=== PATIENT | male | born 1965 | race Caucasian/White ===

== ENCOUNTER 2017-09-17 07:28 | Emergency (ER) | payer OTHER, MEDICAID ==
[~2017-09-17] VITALS: Ht 132.1 cm; Wt 61.2 kg
[2017-09-17 07:46] VITALS: BP 193/140
[2017-09-17] MEDS ORDERED: KETOROLAC TROMETH 60MG/2ML VIAL IM ONE (09:30)
[2017-09-17] MEDS ORDERED: cloNIDine HCL 0.1 MG TAB PO ONE (09:30)
== END 2017-09-17 10:46 | disposition home or self-care (01) ==
LOC: ER 07:28
DX: M25.775 Osteophyte, left foot (principal); M25.774 Osteophyte, right foot; I10 Essential (primary) hypertension; F17.210 Nicotine dependence, cigarettes, uncomplicated; Z76.0 Encounter for issue of repeat prescription; Z90.49 Acquired absence of other specified parts of digestive tract
CPT/HCPCS: 96372; 99283; J1885

== ENCOUNTER 2017-09-29 06:56 | Emergency (ER) | payer OTHER, MEDICAID ==
[~2017-09-29] VITALS: Ht 175.3 cm; Wt 61.2 kg
[2017-09-29 08:00] VITALS: BP 154/97
== END 2017-09-29 08:56 | disposition home or self-care (01) ==
LOC: ER 06:56
DX: F41.9 Anxiety disorder, unspecified (principal); I10 Essential (primary) hypertension; F17.210 Nicotine dependence, cigarettes, uncomplicated; Z76.0 Encounter for issue of repeat prescription